=== PATIENT | male | born 1970 | race Caucasian/White ===

== ENCOUNTER 2018-08-17 08:30 | Outpatient (CLI) | payer MEDICAID ==
[2018-08-17 09:09] LABS: BASOPHILS % (AUTO) 0.8 %; EOSINOPHILS # (AUTO) 0.7 10^3/uL (0.0-0.7); EOSINOPHILS % (AUTO) 11.3 %; HGB - HEMOGLOBIN 16.1 g/dL (14.0-18.0); LYMPHOCYTES # (AUTO) 2.2 10^3/uL (1.5-3.5); LYMPHOCYTES % (AUTO) 38.8 %; MEAN CORPUSCULAR HEMOGLOBIN 30.6 pg (27.0-31.0); MEAN CORPUSCULAR HGB CONC 34.2 g/dL (32.0-36.0); MEAN CORPUSCULAR VOLUME 89.4 fL (80.0-94.0); MONOCYTES # (AUTO) 0.6 10^3/uL (0.0-1.0); MONOCYTES % (AUTO) 10.1 %; NEUTROPHILS # (AUTO) 2.3 10^3/uL (1.5-6.6); PLT - PLATELET COUNT 183 10^3/uL (130-450); RED BLOOD COUNT 5.27 10^6/uL (4.70-6.10); RED CELL DISTRIBUTION WIDTH 12.4 % (12.0-15.0); WHITE BLOOD COUNT 5.8 x10^3/uL (4.8-10.8)
[2018-08-17 10:06] LABS: ALBUMIN 4.4 g/dL (3.2-5.5); ALBUMIN/GLOBULIN RATIO 1.3 (1.0-2.2); ALKALINE PHOSPHATASE 61 IU/L (42-121); ALT ALANINE AMINOTRANSFERASE 26 IU/L (10-60); AST ASPARTATE AMINOTRANSFERASE 32 IU/L (10-42); BILIRUBIN,TOTAL 1.3 mg/dL (0.2-1.0); BUN - BLOOD UREA NITROGEN 15 mg/dL (6-20); CALCIUM 9.3 mg/dL (8.5-10.3); CARBON DIOXIDE - CO2 26 mmol/L (21-32); CHLORIDE 102 mmol/L (101-111); CHOL/HDL RATIO 5.2 (<5.0); CHOLESTEROL 217 mg/dL; GFR - MDRD 79 (>89); GLUCOSE 105 mg/dL (70-100); HDL CHOLESTEROL 42 mg/dL; LDL CHOLESTEROL,CALCULATED 146 mg/dL; LDL/HDL RATIO 3.5 (<3.6); SODIUM 138 mmol/L (135-145); TOTAL PROTEIN 7.7 g/dL (6.7-8.2); VLDL CHOLESTEROL 29 mg/dL
== END 2018-08-17 08:31 | disposition home or self-care (01) ==
LOC: LAB 08:30
PROVIDERS: ATTEND Physician Assistant Medical
DX: Z00.00 Encounter for general adult medical examination without abnormal findings (principal)
CPT/HCPCS: 36415; 80053; 80061; 83721; 84153; 84443; 85025

== ENCOUNTER 2018-08-18 08:00 | Outpatient (CLI) | payer MEDICAID | END 2018-08-18 23:59 | disposition home or self-care (01) | LOC: LAB.R 08:00 | PROVIDERS: ATTEND Physician Assistant Medical | DX: Z12.11 Encounter for screening for malignant neoplasm of colon (principal) | CPT/HCPCS: 82274 ==

== ENCOUNTER 2019-09-19 13:38 | Outpatient (CLI) | payer MEDICAID | END 2019-09-19 13:39 | disposition home or self-care (01) | LOC: COV 13:38 | PROVIDERS: ATTEND Family Medicine | DX: R05 Cough (principal); R50.9 Fever, unspecified | CPT/HCPCS: 81599 ==

== ENCOUNTER 2020-01-27 08:38 | Outpatient (CLI) | payer MEDICAID ==
--- NOTE | 2020-01-27 10:34 | XRAY Report ---
PROCEDURE: Shoulder 3 View LT INDICATIONS: LT SHOULDER ARTHRITIS,BI LAT HAND/ANKLE ARTHRITIS TECHNIQUE: 3 views of the shoulder were acquired. COMPARISON: None. FINDINGS: Bones: No fractures or dislocations but there is moderate osteoarthritis at the AC joint with inferi or projecting osseous spurring to the degree that impingement may be present against the supraspinatu s rotator cuff. No suspicious bony lesions. Visualized ribs appear intact. Soft tissues: No suspicious soft tissue calcifications. IMPRESSION: No trauma found but there is moderate osteoarthritis at the AC joint to the degree that impingement on the supraspinatus tendon may be present. Reviewed by: Servando Malloy MD on 01/27/2020 10:33 AM PDT Approved by: Servando Malloy MD on 01/27/2020 10:33 AM PDT Station ID: [id number]
--- NOTE | 2020-01-27 10:38 | XRAY Report ---
PROCEDURE: Hand 3 View BILAT INDICATIONS: LT SHOULDER ARTHRITIS,BI LAT HAND/ANKLE ARTHRITIS TECHNIQUE: 3 views of the hands bilaterally were acquired, 6 views total. COMPARISON: None FINDINGS: Bones: No fractures or dislocations but there is mild degenerative osteoarthritis at the interphalan geal joints. No erosive arthritis or prior trauma is found.. No suspicious bony lesions. Soft tissues: No suspicious soft tissue calcifications. IMPRESSION: Mild bilaterally symmetric degenerative osteoarthritis without erosive changes. No prior trauma seen. Reviewed by: Servando Malloy MD on 01/27/2020 10:37 AM PDT Approved by: Servando Malloy MD on 01/27/2020 10:37 AM PDT Station ID: [id number]
--- NOTE | 2020-01-27 10:40 | XRAY Report ---
PROCEDURE: Ankle 3 View BILAT INDICATIONS: LT SHOULDER ARTHRITIS,BI LAT HAND/ANKLE ARTHRITIS TECHNIQUE: 3 views of the ankles bilaterally were acquired (6 total views). COMPARISON: None FINDINGS: Bones: No fractures or dislocations. Ankle mortise is normally aligned. No suspicious bony lesions . Soft tissues: No tibiotalar joint effusion. Achilles tendon appears normal. IMPRESSION: No trauma found, no joint effusion or evidence of appreciable degenerative osteoarthriti c change. No erosive arthritis is found. Reviewed by: Servando Malloy MD on 01/27/2020 10:38 AM PDT Approved by: Servando Malloy MD on 01/27/2020 10:38 AM PDT Station ID: [id number]
== END 2020-01-27 08:39 | disposition home or self-care (01) ==
LOC: DI 08:38
PROVIDERS: ATTEND Family Medicine
DX: M19.012 Primary osteoarthritis, left shoulder (principal); M19.042 Primary osteoarthritis, left hand; M19.041 Primary osteoarthritis, right hand; M19.079 Primary osteoarthritis, unspecified ankle and foot; E78.5 Hyperlipidemia, unspecified; I10 Essential (primary) hypertension; R97.20 Elevated prostate specific antigen [PSA]
CPT/HCPCS: 36415; 80053; 80061; 83721; 84153; 84443; 84550; 85025; 85651; 86038; 86140; 86200; 86430

== ENCOUNTER 2020-02-08 07:54 | Outpatient (CLI) | payer MEDICAID | END 2020-02-08 07:55 | disposition home or self-care (01) | LOC: LAB 07:54 | PROVIDERS: ATTEND Family Medicine | DX: R68.82 Decreased libido (principal) | CPT/HCPCS: 36415; 81599; 84402; 84403 ==

== ENCOUNTER 2022-09-15 08:25 | Emergency (ER) | payer MEDICAID ==
[2022-09-15 08:34] VITALS: BP 150/85
[2022-09-15] MEDS ORDERED: TETANUS/DIPHTHERIA/PERTUSSIS 0.5 ML SYRINGE IM ONE (08:40)
--- NOTE | 2022-09-15 08:45 | ED Physician Documentation ---
PD HPI UPPER EXT INJURY - Stated complaint Stated Complaint: R HAND INJURY - Chief complaint Chief Complaint: Trauma Ext - History obtained from History obtained from: Patient, Family - History of Present Illness Location: Right, Hand Pain level max: 6 Pain level now: 5 Improved by: Rest, Ice, Immobilization Worsened by: Moving, Palpating Associated symptoms: Swelling. No: Weakness, Numbness, Tingling Contributing factors: No: Anticoagulated - Additonal information Additional information: Patient states he was working on his tractor this morning when his right hand was caught and crushed. Has lacerations to the proximal phalanx of the index finger, palmar aspect and middle finger, proximal phalanx, palmar aspect. Unknown last tetanus shot. Neurovascular intact. Patient is right handed PD PAST MEDICAL HISTORY - Past Medical History Cardiovascular: None Respiratory: None Neuro: None Endocrine/Autoimmune: None GI: None : None Musculoskeletal: None Derm: None - Present Medications Home Medications: Ambulatory Orders Medication Instructions Recorded Confirmed cephALEXin [Keflex] 500 mg PO Q6H #28 cap 09/15/22 - Allergies Allergies/Adverse Reactions: Allergies Allergy/AdvReac Type Severity Reaction Status Date / Time No Known Drug Allergies Allergy Verified 09/15/22 08:29 - Social History Smoking Status: Never smoker PD ED PE NORMAL - Vitals Vital signs reviewed: Yes - General General: Alert and oriented X 3, No acute distress - Derm Derm: Warm and dry - Extremities Extremities: Other (R hand - has lacerations to the proximal phalanx of the index finger, palmar aspect and middle finger, proximal phalanx, palmar aspect. Neurovascular intact. Tendons intact.) - Neuro Neuro: Alert and oriented X 3 Results - Vitals Vitals: Vital Signs - 24 hr 09/15/22 08:30 Temperature 36.9 C Heart Rate 64 Respiratory 16 Rate Blood Pressure 150/85 H O2 Saturation 97 Oxygen O2 Source Room air - Rads (name of study) R hand xray Relevant Findings:: Final report received, See rad report (Nondisplaced second proximal phalangeal fracture at the head/neck. ) Procedures - Laceration (location) R hand Length in cm: 1.5 Wound type: Linear, Into subcut fat, Clean Neurovascular status: Sensory intact, Motor intact, Vascular intact Tendon involvement: Tendon intact Wound preparation: Irrigated copiously NS, Wound explored, To the base Skin layer closure: Dermabond, Steri strips Other: No complications, Neurovascular intact, Tetanus UTD - Splint (location) - Minor R hand Splint applied by: Physician, Tech Type of splint: Fiberglass, Volar cock up Other: Patient tolerated well, No complications, Neurovascular intact PD Medical Decision Making - ED course Complexity details: reviewed results, re-evaluated patient, considered differential, d/w patient ED course: 52-year-old male with a right hand crush injury. Did have a laceration on the back of the right index finger over the knuckle, this was repaired with Dermabond and Steri-Strips. We opted not to use sutures as he will be in a splint due to the fracture. Also appears to potentially have fractures of the proximal phalanx of the third and fourth digits, therefore the entire hand was splinted. We will place on Keflex. Tetanus up-to-date. Neurovascular intact. Warnings of infection and instructions on wound care given at bedside. Also counseled on how to minimize scarring. Patient counseled regarding signs and symptoms for which I believe and urgent re-evaluation would be necessary. Patient with good understanding of and agreement to plan and is comfortable going home at this time This document was made in part using voice recognition software. While efforts are made to proofread this document, sound alike and grammatical errors may o ccur. Departure - Departure Disposition: 01 Home, Self Care Clinical Impression: Hand crush injury Qualifiers: Encounter type: initial encounter Laterality: right Qualified Code(s): S67.21XA - Crushing injury of right hand, initial encounter Finger laceration Qualifiers: Encounter type: initial encounter Finger: unspecified finger Damage to nail status: without damage Foreign body presence: without foreign body Laterality: right Qualified Code(s): S61.219A - Laceration without foreign body of unspecified finger without damage to nail, initial encounter Finger fracture, right Qualifiers: Encounter type: initial encounter Finger: index finger Fracture type: closed Phalanx: proximal Fracture alignment: nondisplaced Qualified Code(s): S62.640A - Nondisplaced fracture of proximal phalanx of right index finger, initial encounter for closed fracture Condition: Good Instructions: ED Fx Finger Closed, ED Laceration Hand Follow-Up: Orthopedic Care [Provider Group] - Within 1 week Prescriptions: cephALEXin [Keflex] 500 mg PO Q6H #28 cap Comments: Keep the splint in place. Please call orthopedics for a follow-up appointment within 1 week. I would recommend calling their office today. Please take all antibiotics until gone. Your prescriptions were sent to [facility] in [place]. There is a definite nondisplaced fracture of your right index finger, there are possible nondisplaced fractures of your middle and ring finger as well. Discharge Date/Time: 09/15/22 10:02
--- NOTE | 2022-09-15 09:17 | XRAY Report ---
PROCEDURE: Hand 3 View RT INDICATIONS: tractor crush injury TECHNIQUE: 3 views of the hand(s) acquired. COMPARISON: 01/27/2020 FINDINGS: Bones: Nondisplaced fracture at the second proximal phalangeal head/neck. Soft tissues: No suspicious soft tissue calcifications or masses. IMPRESSION: Nondisplaced second proximal phalangeal fracture at the head/neck. Reviewed by: Cecil Alexander MD on 09/15/2022 9:16 AM PDT Approved by: Cecil Alexander MD on 09/15/2022 9:16 AM PDT Station ID: [id number]
[2022-09-15] MEDS ORDERED: cephALEXin 250 MG CAPSULE PO STA (09:31)
== END 2022-09-15 10:02 | disposition home or self-care (01) ==
LOC: ED 08:25
DX: S67.21XA Crushing injury of right hand, initial encounter (principal); S62.640A Nondisplaced fracture of proximal phalanx of right index finger, initial encounter for closed fracture; S61.210A Laceration without foreign body of right index finger without damage to nail, initial encounter; W23.0XXA Caught, crushed, jammed, or pinched between moving objects, initial encounter
CPT/HCPCS: 12001; 29125; 73130; 90471; 90715; 99283; A9270

== ENCOUNTER 2022-09-22 10:23 | Outpatient (CLI) | payer MEDICAID ==
--- NOTE | 2022-09-22 13:21 | XRAY Report ---
PROCEDURE: Hand 3 View RT INDICATIONS: RIGHT HAND PAIN TECHNIQUE: 3 views of the hand(s) acquired. COMPARISON: 3 views of the right hand dated 09/15/2022 FINDINGS: Bones: Horizontally oriented fracture through the distal aspect of the right second proximal phalanx is redemonstrated. No change in alignment. Soft tissues: No suspicious soft tissue calcifications or masses. IMPRESSION: Stable right second digit fracture. Reviewed by: Mandy De La Rosa MD on 09/22/2022 1:19 PM PDT Approved by: Mandy De La Rosa MD on 09/22/2022 1:19 PM PDT Station ID: [id number]
== END 2022-09-22 10:37 | disposition home or self-care (01) ==
LOC: DI.WOS 10:23
PROVIDERS: ATTEND Orthopaedic Surgery
DX: S62.610A Displaced fracture of proximal phalanx of right index finger, initial encounter for closed fracture (principal)

== ENCOUNTER 2022-10-27 08:00 | Outpatient (CLI) | payer MEDICAID ==
--- NOTE | 2022-10-27 11:17 | XRAY Report ---
PROCEDURE: Finger(s) RT INDICATIONS: RIGHT INDEX FINGER FRACTURE TECHNIQUE: AP hand, 2 views of the second finger(s) acquired. COMPARISON: 09/22/2022, 09/15/2022 FINDINGS: Redemonstrated transverse fracture of the distal aspect of the second digit proximal phalanx, similar in alignment to before. The fracture plane is slightly less conspicuous, possible progression of hea ling. Fragmentation at the dorsal aspect of the second digit middle phalanx base is suspicious for fontana bacute fracture, similar in alignment. Corticated fragment at the dorsal aspect third digit DIP joint may Represent sequela of remote trauma or degenerative change. IMPRESSION: 1. Similar alignment of the second digit proximal phalanx fracture. 2. Fragmentation at the dorsal aspect of the second digit middle phalanx base is suspicious for subac remedios fracture, similar in alignment. Reviewed by: Jc Blanchard MD on 10/27/2022 11:16 AM PDT Approved by: Jc Blanchard MD on 10/27/2022 11:16 AM PDT Station ID: [id number]
== END 2022-10-27 23:59 | disposition home or self-care (01) ==
LOC: DI.WOS 08:00
PROVIDERS: ATTEND Orthopaedic Surgery
DX: S62.610D Displaced fracture of proximal phalanx of right index finger, subsequent encounter for fracture with routine healing (principal)